=== PATIENT | female | born 1935 | race Caucasian/White ===

== ENCOUNTER 2021-07-27 11:29 | Emergency (ER) | payer MEDICARE, OTHER ==
[2021-07-27] MEDS ORDERED: Sodium Chloride 0.9% 2.5 ML Syringe FLUSH PRN (11:43)
[2021-07-27] MEDS ORDERED: Sodium Chloride 0.9% 10 ML Syringe FLUSH PRN (11:43)
[2021-07-27] MEDS ORDERED: Pantoprazole 80 MG in Sodium Chloride 0.9% 10 ML IVPUSH ONE (11:54)
[2021-07-27] MEDS ORDERED: Diltiazem 25 MG/5 ML SDV IVPUSH ONE ×2 (11:55→13:12)
[2021-07-27 12:50] LABS: BLOOD UREA NITROGEN,BUN 13 mg/dL (7.0-18.0); CARBON DIOXIDE,CO2 22.5 mmol/L (21.0-32.0); CHLORIDE,CL 103 mmol/L (98-107); GLUCOSE RANDOM 116 mg/dL (74-106); POTASSIUM,K 3.3 mmol/L (3.5-5.1); SODIUM,NA 140 mmol/L (136-145)
[2021-07-27] MEDS ORDERED: Piperacillin/Tazobactam 4.5 GM in Sodium Chloride 0.9% 100 ML IV ONE (13:11)
[2021-07-27] MEDS ORDERED: Diltiazem 120 MG Cap.CD PO ONE (13:13)
[2021-07-27] MEDS ORDERED: Sodium Chloride 0.9% 500 ML IV ONE (13:56)
[2021-07-27] MEDS ORDERED: Iopamidol 755 MG/ML 500 ML Multipack Bottle IVPUSH STA (16:19)
[2021-07-27] MEDS ORDERED: VANCOmycin 1.75 GM/350 ML 1.75 GM in Premix Bag 1 BAG IV ONE (16:30)
[2021-07-27 16:39] VITALS: BP 160/84; PULSE 106
== END 2021-07-27 19:26 ==
LOC: MW.ED 11:29 → MW.ICU 15:05 → UNDOADMIN 15:05 → UNDODISIN 19:28
DX: D64.9 Anemia, unspecified (principal); N39.0 Urinary tract infection, site not specified; I48.91 Unspecified atrial fibrillation; J44.1 Chronic obstructive pulmonary disease with (acute) exacerbation; J90 Pleural effusion, not elsewhere classified; C18.9 Malignant neoplasm of colon, unspecified; E78.00 Pure hypercholesterolemia, unspecified; I25.2 Old myocardial infarction; Z95.5 Presence of coronary angioplasty implant and graft; I10 Essential (primary) hypertension; M19.90 Unspecified osteoarthritis, unspecified site; F41.9 Anxiety disorder, unspecified; E03.9 Hypothyroidism, unspecified; Z86.73 Personal history of transient ischemic attack (TIA), and cerebral infarction without residual deficits; Z88.2 Allergy status to sulfonamides; Z88.5 Allergy status to narcotic agent; Z79.01 Long term (current) use of anticoagulants; Z79.02 Long term (current) use of antithrombotics/antiplatelets; Z79.890 Hormone replacement therapy; Z79.899 Other long term (current) drug therapy; Z20.822 Contact with and (suspected) exposure to COVID-19
CPT/HCPCS: 36415; 36430; 71045; 74177; 80053; 81001; 83605; 83880; 84484; 85025; 85610; 86850; 86900; 86901; 86920; 87040; 93005; 96365; 96366; 96367; 96375; 96376; 99291; A9270; C9113; J2543; J3370; J3490; J7030; P9016; Q9967; U0002

== ENCOUNTER 2021-08-27 16:14 | Emergency (ER) | payer MEDICARE ==
[2021-08-27 16:30] VITALS: BP 125/75
[2021-08-27] MEDS ORDERED: Sodium Chloride 0.9% 10 ML Syringe FLUSH PRN (16:31)
[2021-08-27] MEDS ORDERED: Sodium Chloride 0.9% 2.5 ML Syringe FLUSH PRN (16:31)
[2021-08-27 17:20] LABS: CARBON DIOXIDE,CO2 25.5 mmol/L (21.0-32.0); POTASSIUM,K 3.7 mmol/L (3.5-5.1)
[2021-08-27 17:35] VITALS: PULSE 89
[2021-08-27 17:54] LABS: CORONAVIRUS COVID-19 NAA NEGATIVE (NEGATIVE); INFLUENZA A NAA NEGATIVE (NEGATIVE); INFLUENZA B NAA NEGATIVE (NEGATIVE)
[2021-08-27] MEDS ORDERED: Azithromycin 250 MG Tab PO ONE (18:00)
== END 2021-08-27 18:44 ==
LOC: MW.ED 16:14
DX: R05.9 Cough, unspecified (principal); I48.91 Unspecified atrial fibrillation; I10 Essential (primary) hypertension; I25.2 Old myocardial infarction; E03.9 Hypothyroidism, unspecified; E78.00 Pure hypercholesterolemia, unspecified; Z86.73 Personal history of transient ischemic attack (TIA), and cerebral infarction without residual deficits; Z20.822 Contact with and (suspected) exposure to COVID-19; Z88.5 Allergy status to narcotic agent; Z88.2 Allergy status to sulfonamides; Z79.899 Other long term (current) drug therapy
CPT/HCPCS: 0240U; 36415; 71045; 80053; 85025; 93005; 99284; A9270; J3490; 93010

== ENCOUNTER 2023-03-07 14:58 | Emergency (ER) | payer MEDICARE, OTHER, MEDICAID ==
[2023-03-07] MEDS ORDERED: Sodium Chloride 0.9% 500 ML IV ONE (15:05)
[2023-03-07] MEDS ORDERED: Sodium Chloride 0.9% 2.5 ML Syringe FLUSH PRN (15:05)
[2023-03-07] MEDS ORDERED: Sodium Chloride 0.9% 10 ML Syringe FLUSH PRN (15:05)
[2023-03-07] MEDS ORDERED: Ondansetron 4 MG/2 ML SDV IVPUSH ONE (15:17)
[2023-03-07 16:57] LABS: BASOPHILS ABSOLUTE AUTO 0.02 K/uL (0.00-0.20); BASOPHILS PERCENT AUTO 0.2 % (0.0-1.0); EOSINOPHILS ABSOLUTE AUTO 0.01 K/uL (0.00-0.45); EOSINOPHILS PERCENT AUTO 0.1 % (0.0-6.0); HEMATOCRIT 37.7 % (37.0-47.0); HEMOGLOBIN 12.6 g/dL (12.0-16.0); IMMATURE GRAN ABSOLUTE AUTO 0.05 K/uL (0.00-0.05); IMMATURE GRAN PERCENT AUTO 0.4 % (0.0-0.4); LYMPHOCYTES ABSOLUTE AUTO 1.09 K/uL (1.00-4.80); MEAN CORPUSCULAR HEMOGLOBIN 29.2 pg (28.0-32.0); MEAN CORPUSCULAR HGB CONC 33.4 g/dL (32.0-36.0); MEAN CORPUSCULAR VOLUME 87.3 fL (83.0-99.0); MEAN PLATELET VOLUME 10.8 fL (9.4-12.3); MONOCYTES ABSOLUTE AUTO 0.67 K/uL (0.00-0.80); MONOCYTES PERCENT AUTO 5.5 % (0.0-8.0); NEUTROPHILS ABSOLUTE AUTO 10.32 K/uL (1.80-7.70); NEUTROPHILS PERCENT AUTO 84.8 % (41.0-71.0); PLATELET COUNT,PLT 251 K/uL (150-400); RED BLOOD CELL COUNT 4.32 M/uL (4.10-5.30); WHITE BLOOD CELL COUNT,WBC 12.16 K/uL (3.9-11.3)
[2023-03-07 17:26] LABS: LACTIC ACID 6.8 mmol/L (0.4-2.0)
[2023-03-07 17:36] LABS: A/G RATIO 0.7 (0.9-1.6); ALBUMIN 3.1 g/dL (3.4-5.0); BILIRUBIN TOTAL 0.7 mg/dL (0.2-1.0); CALCIUM 9.3 mg/dL (8.5-10.1); CARBON DIOXIDE,CO2 22.6 mmol/L (21.0-32.0); CREATININE 1.4 mg/dL (0.6-1.0); EST CRCL DRUG DOSING (CG) 25.37 mL/min; MAGNESIUM 1.8 mg/dL (1.8-2.4); POTASSIUM,K 4.3 mmol/L (3.5-5.1); PROTEIN TOTAL,TP 7.3 g/dL (6.4-8.2); TSH ULTRASENSITIVE 1.54 uIU/mL (0.36-3.74)
[2023-03-07] MEDS ORDERED: Sodium Chloride 0.9% 500 ML IV SCH (18:00)
[2023-03-07] MEDS ORDERED: Sodium Chloride 0.9% 1,000 ML IV ONE (20:56)
[2023-03-07 21:04] LABS: APPEARANCE,URINE SLT CLOUDY; BILIRUBIN,URINE NEGATIVE (NEGATIVE); COLOR,URINE YELLOW; GLUCOSE,URINE NEGATIVE (NEGATIVE); KETONES,URINE TRACE mg/dL (NEGATIVE); LEUKOCYTE ESTERASE,URINE NEGATIVE (NEGATIVE); NITRITE,URINE NEGATIVE (NEGATIVE); OCCULT BLOOD,URINE NEGATIVE (NEGATIVE); PROTEIN,URINE NEGATIVE (NEGATIVE)
[2023-03-07 23:12] VITALS: BP 128/83; PULSE 66
== END 2023-03-07 22:45 | disposition home or self-care (01) ==
LOC: MW.ED 14:58
DX: R40.4 Transient alteration of awareness (principal); I10 Essential (primary) hypertension; I25.2 Old myocardial infarction; E78.00 Pure hypercholesterolemia, unspecified; J45.909 Unspecified asthma, uncomplicated; M19.90 Unspecified osteoarthritis, unspecified site; E03.9 Hypothyroidism, unspecified; Z88.5 Allergy status to narcotic agent; Z88.2 Allergy status to sulfonamides; Z79.899 Other long term (current) drug therapy; Z79.01 Long term (current) use of anticoagulants; Z79.02 Long term (current) use of antithrombotics/antiplatelets
CPT/HCPCS: 36415; 70450; 71045; 72125; 80053; 81003; 83605; 83690; 83735; 84443; 84484; 85025; 93005; 96361; 96374; 99285; J2405; J3490; J7030; J7040; 93010; 99284

== ENCOUNTER 2023-03-09 05:49 | Inpatient (IN) | payer MEDICARE, OTHER, MEDICAID ==
[2023-03-09] MEDS ORDERED: Sodium Chloride 0.9% 500 ML IV ONE (05:54)
[2023-03-09] MEDS ORDERED: Sodium Chloride 0.9% 10 ML Syringe FLUSH PRN (05:54)
[2023-03-09] MEDS ORDERED: Sodium Chloride 0.9% 2.5 ML Syringe FLUSH PRN (05:54)
[2023-03-09 06:09] LABS: BASOPHILS ABSOLUTE AUTO 0.03 K/uL (0.00-0.20); BASOPHILS PERCENT AUTO 0.2 % (0.0-1.0); HEMATOCRIT 34.9 % (37.0-47.0); HEMOGLOBIN 11.7 g/dL (12.0-16.0); IMMATURE GRAN ABSOLUTE AUTO 0.08 K/uL (0.00-0.05); IMMATURE GRAN PERCENT AUTO 0.5 % (0.0-0.4); LYMPHOCYTES PERCENT AUTO 6.4 % (24.0-44.0); MEAN CORPUSCULAR HEMOGLOBIN 28.9 pg (28.0-32.0); MEAN CORPUSCULAR HGB CONC 33.5 g/dL (32.0-36.0); MEAN CORPUSCULAR VOLUME 86.2 fL (83.0-99.0); MEAN PLATELET VOLUME 11.1 fL (9.4-12.3); MONOCYTES PERCENT AUTO 7.7 % (0.0-8.0); NEUTROPHILS ABSOLUTE AUTO 13.23 K/uL (1.80-7.70); NEUTROPHILS PERCENT AUTO 85.2 % (41.0-71.0); PLATELET COUNT,PLT 216 K/uL (150-400); RED BLOOD CELL COUNT 4.05 M/uL (4.10-5.30); WHITE BLOOD CELL COUNT,WBC 15.54 K/uL (3.9-11.3)
[2023-03-09 06:14] LABS: INR 1.83 (0.86-1.11)
[2023-03-09 06:25] LABS: A/G RATIO 0.6 (0.9-1.6); ALBUMIN 2.5 g/dL (3.4-5.0); CALCIUM 8.9 mg/dL (8.5-10.1); CARBON DIOXIDE,CO2 22.8 mmol/L (21.0-32.0); CREATININE 1.3 mg/dL (0.6-1.0); EST CRCL DRUG DOSING (CG) 26.17 mL/min; MAGNESIUM 1.6 mg/dL (1.8-2.4); POTASSIUM,K 3.6 mmol/L (3.5-5.1); PROTEIN TOTAL,TP 6.8 g/dL (6.4-8.2)
[2023-03-09] MEDS ORDERED: Sodium Chloride 0.9% 500 ML IV SCH (08:00)
[2023-03-09] MEDS ORDERED: cefTRIAXone 2 GM in Sodium Chloride 0.9% 50 ML IV ONE (08:01)
[2023-03-09] MEDS ORDERED: Iopamidol 755 MG/ML 500 ML Multipack Bottle IVPUSH STA (09:00)
[2023-03-09] MEDS ORDERED: Sodium Chloride 0.9% 1,000 ML IV ONE (10:12)
[2023-03-09 10:32] LABS: CORONAVIRUS COVID-19 NAA NEGATIVE (NEGATIVE); INFLUENZA A NAA NEGATIVE (NEGATIVE); INFLUENZA B NAA NEGATIVE (NEGATIVE); RESPIRATORY SYNCYTIAL VIR NAA NEGATIVE (NEGATIVE)
[2023-03-09] MEDS ORDERED: Magnesium Sulfate/Water 2 GM/50 ML Premix Bag IV ONE (12:20)
[2023-03-09 12:37] LABS: LACTIC ACID 2.4 mmol/L (0.4-2.0)
[2023-03-09] MEDS ORDERED: Magnesium Sulfate/Water 2 GM in Premix Bag 1 BAG IV ONE (12:45)
[2023-03-09] MEDS ORDERED: NS + KCl 20mEq/L 1,000 ML IV SCH (13:30)
[2023-03-09] MEDS ORDERED: Apixaban 2.5 MG Tab PO SCH (13:45)
[2023-03-09] MEDS: Sodium Chloride 0.9% 1,000 ML IV SCH ×2 (15:26→23:15)
[2023-03-09] MEDS: Rivaroxaban 15 MG Tab PO SCH (17:15)
[2023-03-09] MEDS: Donepezil 5 MG Tab PO SCH (20:40)
[2023-03-09] MEDS: FLUTICASONE INH SCH (20:40)
[2023-03-09] MEDS: atorvaSTATin 40 MG Tab PO SCH (20:40)
[2023-03-09] MEDS: SALMETEROL INH SCH (20:40)
[2023-03-10 06:03] LABS: HEMATOCRIT 36.2 % (37.0-47.0); HEMOGLOBIN 12.2 g/dL (12.0-16.0); MEAN CORPUSCULAR HEMOGLOBIN 28.6 pg (28.0-32.0); MEAN CORPUSCULAR HGB CONC 33.7 g/dL (32.0-36.0); MEAN PLATELET VOLUME 11.6 fL (9.4-12.3); PLATELET COUNT,PLT 223 K/uL (150-400); RED BLOOD CELL COUNT 4.26 M/uL (4.10-5.30); WHITE BLOOD CELL COUNT,WBC 14.44 K/uL (3.9-11.3)
[2023-03-10 06:31] LABS: A/G RATIO 0.5 (0.9-1.6); ALBUMIN 2.3 g/dL (3.4-5.0); BILIRUBIN TOTAL 0.6 mg/dL (0.2-1.0); CALCIUM 8.7 mg/dL (8.5-10.1); CARBON DIOXIDE,CO2 25.8 mmol/L (21.0-32.0); CREATININE 0.8 mg/dL (0.6-1.0); EST CRCL DRUG DOSING (CG) 48.13 mL/min; MAGNESIUM 1.8 mg/dL (1.8-2.4); PHOSPHORUS 2.4 mg/dL (2.6-4.7); POTASSIUM,K 2.9 mmol/L (3.5-5.1); PROTEIN TOTAL,TP 6.6 g/dL (6.4-8.2)
[2023-03-10 06:41] LABS: BAND ABSOLUTE MAN 0.3; BAND PERCENT MAN 2 %; EOSINOPHILS ABSOLUTE MAN 0.1 (0.0-0.7); EOSINOPHILS PERCENT MAN 1 % (0.0-7.0); LYMPHOCYTES PERCENT MAN 7 % (16.0-40.0); MONOCYTES ABSOLUTE MAN 2.3 (0.0-0.8); MONOCYTES PERCENT MAN 16 % (0.0-15.0); SEG NEUTROPHILS ABSOLUTE MAN 10.7 (1.4-5.7); SEG NEUTROPHILS PERCENT MAN 74 % (48.0-80.0)
[2023-03-10] MEDS ORDERED: Phosphorus #1 250 MG Tab PO SCH (07:09)
[2023-03-10] MEDS ORDERED: Potassium Chloride 20 MEQ Tab.ER PO ONE (07:15)
[2023-03-10] MEDS: Levothyroxine 112 MCG Tab PO SCH (07:52)
[2023-03-10] MEDS: Phosphorus #1 250 MG Tab PO SCH ×4 (08:00→23:22)
[2023-03-10] MEDS: Diltiazem 120 MG Cap.CD PO SCH (08:03)
[2023-03-10] MEDS: SALMETEROL INH SCH ×2 (08:05→20:02)
[2023-03-10] MEDS: FLUTICASONE INH SCH ×2 (08:05→20:02)
[2023-03-10 08:17] LABS: APPEARANCE,URINE CLEAR; BILIRUBIN,URINE NEGATIVE (NEGATIVE); COLOR,URINE YELLOW; GLUCOSE,URINE NEGATIVE (NEGATIVE); KETONES,URINE NEGATIVE (NEGATIVE); LEUKOCYTE ESTERASE,URINE TRACE (NEGATIVE); NITRITE,URINE NEGATIVE (NEGATIVE); OCCULT BLOOD,URINE NEGATIVE (NEGATIVE); PH,URINE 5.5 (5.0-8.0); PROTEIN,URINE NEGATIVE (NEGATIVE)
[2023-03-10 08:33] LABS: BACTERIA,URINE FEW (NEGATIVE); EPITHELIAL CELLS,URINE FEW (NONE-FEW); RBC,URINE 0-1 (0-2/HPF)
[2023-03-10] MEDS ORDERED: Non-Formulary Medication 1 Each (Esomeprazole [Nexium] 40 MG Cap) PO SCH (09:00)
[2023-03-10] MEDS ORDERED: Levothyroxine 100 MCG Tab PO SCH (09:00)
[2023-03-10] MEDS ORDERED: Clopidogrel 75 MG Tab PO SCH (09:00)
[2023-03-10] MEDS: Rivaroxaban 15 MG Tab PO SCH (17:02)
[2023-03-10] MEDS: atorvaSTATin 40 MG Tab PO SCH ×2 (19:34→20:00)
[2023-03-10] MEDS: Donepezil 5 MG Tab PO SCH ×2 (19:34→20:00)
[2023-03-11] MEDS: Phosphorus #1 250 MG Tab PO SCH ×2 (05:58→12:03)
[2023-03-11] MEDS: Levothyroxine 112 MCG Tab PO SCH ×2 (05:58→06:57)
[2023-03-11 08:54] LABS: HEMATOCRIT 34.3 % (37.0-47.0); HEMOGLOBIN 11.7 g/dL (12.0-16.0); MEAN CORPUSCULAR HEMOGLOBIN 28.8 pg (28.0-32.0); MEAN CORPUSCULAR HGB CONC 34.1 g/dL (32.0-36.0); MEAN CORPUSCULAR VOLUME 84.5 fL (83.0-99.0); MEAN PLATELET VOLUME 10.4 fL (9.4-12.3); PLATELET COUNT,PLT 258 K/uL (150-400); RED BLOOD CELL COUNT 4.06 M/uL (4.10-5.30); WHITE BLOOD CELL COUNT,WBC 9.89 K/uL (3.9-11.3)
[2023-03-11] MEDS: Diltiazem 120 MG Cap.CD PO SCH (09:16)
[2023-03-11] MEDS: FLUTICASONE INH SCH ×2 (09:16→20:52)
[2023-03-11] MEDS: SALMETEROL INH SCH ×2 (09:16→20:52)
[2023-03-11 09:17] LABS: A/G RATIO 0.6 (0.9-1.6); ALBUMIN 2.2 g/dL (3.4-5.0); BILIRUBIN TOTAL 0.8 mg/dL (0.2-1.0); CALCIUM 8.6 mg/dL (8.5-10.1); CREATININE 0.7 mg/dL (0.6-1.0); EST CRCL DRUG DOSING (CG) 55.01 mL/min; MAGNESIUM 1.6 mg/dL (1.8-2.4); PHOSPHORUS 2.9 mg/dL (2.6-4.7); POTASSIUM,K 2.7 mmol/L (3.5-5.1); PROTEIN TOTAL,TP 6.2 g/dL (6.4-8.2)
[2023-03-11] MEDS ORDERED: Sodium Chloride 0.9% 500 ML IV ONE (09:45)
[2023-03-11] MEDS: Potassium Chloride 20 MEQ Tab.ER PO SCH ×3 (09:52→20:53)
[2023-03-11] MEDS: Potassium Chloride 100 ML IV SCH ×2 (09:53→12:00)
[2023-03-11] MEDS ORDERED: Naloxone 0.4 MG/ML SDV IVPUSH PRN (17:27)
[2023-03-11] MEDS ORDERED: Morphine 10 MG/0.5 ML Oral Syringe PO PRN (17:27)
[2023-03-11] MEDS ORDERED: LORazepam ORAL Concentrate 1MG/0.5ML U/D SL PRN (17:29)
[2023-03-11] MEDS: Rivaroxaban 15 MG Tab PO SCH (18:00)
[2023-03-11] MEDS: atorvaSTATin 40 MG Tab PO SCH (20:13)
[2023-03-11] MEDS: Donepezil 5 MG Tab PO SCH (20:13)
[2023-03-12] MEDS: Levothyroxine 112 MCG Tab PO SCH ×2 (06:14→06:39)
[2023-03-12] MEDS: SALMETEROL INH SCH ×2 (10:31→21:17)
[2023-03-12] MEDS: FLUTICASONE INH SCH ×2 (10:31→21:17)
[2023-03-12] MEDS: Potassium Chloride 20 MEQ Tab.ER PO SCH (10:38)
[2023-03-12] MEDS: Diltiazem 120 MG Cap.CD PO SCH (10:38)
[2023-03-12] MEDS: Rivaroxaban 15 MG Tab PO SCH (17:34)
[2023-03-12] MEDS: atorvaSTATin 40 MG Tab PO SCH (20:23)
[2023-03-12] MEDS: Donepezil 5 MG Tab PO SCH (20:23)
[2023-03-13] MEDS: Levothyroxine 112 MCG Tab PO SCH ×2 (06:16→08:23)
[2023-03-13] MEDS: Diltiazem 120 MG Cap.CD PO SCH (09:53)
[2023-03-13] MEDS: FLUTICASONE INH SCH ×2 (09:55→20:37)
[2023-03-13] MEDS: SALMETEROL INH SCH ×2 (09:55→20:37)
[2023-03-13] MEDS: Rivaroxaban 15 MG Tab PO SCH (17:25)
[2023-03-13] MEDS: Donepezil 5 MG Tab PO SCH (20:37)
[2023-03-13] MEDS: atorvaSTATin 40 MG Tab PO SCH (20:37)
[2023-03-14] MEDS: Levothyroxine 112 MCG Tab PO SCH ×2 (06:04→06:30)
[2023-03-14 08:27] VITALS: PULSE 82
[2023-03-14] MEDS: Diltiazem 120 MG Cap.CD PO SCH (09:13)
[2023-03-14] MEDS: FLUTICASONE INH SCH (09:19)
[2023-03-14] MEDS: SALMETEROL INH SCH (09:19)
[2023-03-14 11:09] VITALS: BP 128/72
== END 2023-03-14 12:45 | DRG 436 ==
LOC: MW.ED 05:49 → MW.MS 10:23 → OBSVTOIN 03-10 10:06 → UNDODISIN 03-11 15:10
PROVIDERS: ADMIT Internal Medicine; ATTEND Internal Medicine
DX: C78.7 Secondary malignant neoplasm of liver and intrahepatic bile duct (principal); E87.20 Acidosis, unspecified; C18.9 Malignant neoplasm of colon, unspecified; I48.91 Unspecified atrial fibrillation; Z51.5 Encounter for palliative care; Z20.822 Contact with and (suspected) exposure to COVID-19; I25.10 Atherosclerotic heart disease of native coronary artery without angina pectoris; Z66 Do not resuscitate; F03.B0 Unspecified dementia, moderate, without behavioral disturbance, psychotic disturbance, mood disturbance, and anxiety; F41.9 Anxiety disorder, unspecified; E78.5 Hyperlipidemia, unspecified; I10 Essential (primary) hypertension; E03.9 Hypothyroidism, unspecified; E86.0 Dehydration; G43.909 Migraine, unspecified, not intractable, without status migrainosus; J45.909 Unspecified asthma, uncomplicated; E78.00 Pure hypercholesterolemia, unspecified; I25.2 Old myocardial infarction; Z95.5 Presence of coronary angioplasty implant and graft; Z90.89 Acquired absence of other organs; Z79.899 Other long term (current) drug therapy; Z88.5 Allergy status to narcotic agent; Z88.2 Allergy status to sulfonamides; Z79.01 Long term (current) use of anticoagulants; Z98.890 Other specified postprocedural states; Z90.710 Acquired absence of both cervix and uterus; Z87.891 Personal history of nicotine dependence; Z79.02 Long term (current) use of antithrombotics/antiplatelets; Z86.73 Personal history of transient ischemic attack (TIA), and cerebral infarction without residual deficits; Z79.890 Hormone replacement therapy; Z11.52 Encounter for screening for COVID-19
CPT/HCPCS: 0241U; 36415; 70450; 71045; 71260; 72125; 72170; 74177; 80053; 81001; 83605; 83735; 84100; 84484; 85025; 85027; 85610; 86850; 86900; 86901; 87040; 93005; 96361; 96365; 97110; 97162; 99285; 93010; 96366; 96367; A9270-GY; G0378; J0696; J3475; J3480; J3490; J7030; J7040; Q9967